=== PATIENT | female | born 1970 | race Caucasian/White ===

== ENCOUNTER 2018-05-28 16:04 | Emergency (ER) | payer OTHER ==
[~2018-05-28 16:04] MED LIST: EPINEPHrine 0.1 MG/ML SYG; ETOMIDATE 20 MG INJ; NA BICARBONATE 8.4% 50 ML SYG; SUCCINYLCHOLINE CHLORIDE 100 MG/5 ML SYG IV
[2018-05-28] MEDS: morphine 4 MG/ML VIAL IV (16:17)
[2018-05-28] MEDS: SOD CHLORIDE 0.9% 1,000 ML IV ×2 (16:17→19:02)
[2018-05-28] MEDS: ONDANSETRON 4 MG INJ IV (16:17)
[2018-05-28 16:20] LABS: ADD MAN DIFF? NO
[2018-05-28 16:25] LABS: WHITE BLOOD COUNT 15.6 10^3/ul (4.8-10.8)
[2018-05-28 16:25] LABS: BASOPHIL # 0.1 10^3/ul (0.0-0.1); BASOPHILS % 0.4 % (0.0-2.0); EOSINOPHILS # 0.1 10^3/ul (0.0-0.5); EOSINOPHILS % 0.5 % (0.0-7.0); HEMATOCRIT 34.9 % (37.0-47.0); HEMOGLOBIN 11.1 g/dl (12.0-16.0); LYMPHOCYTES # 4.2 10^3/ul (0.8-2.9); LYMPHOCYTES % 26.9 % (15.0-51.0); MEAN CORPUSCULAR HEMOGLOBIN 24.9 pg (29.0-33.0); MEAN CORPUSCULAR HGB CONC 31.8 g/dl (32.0-37.0); MEAN CORPUSCULAR VOLUME 78.4 fl (82.0-101.0); MEAN PLATELET VOLUME 9.4 fl (7.4-10.4); MONOCYTES % 6.7 % (0.0-11.0); NEUTROPHIL # 10.1 10^3/ul (1.6-7.5); NEUTROPHILS % 65.1 % (39.0-77.0); PLATELET COUNT 221 10^3/UL (140-415); RED BLOOD COUNT 4.45 10^6/ul (4.20-5.40); RED CELL DISTRIBUTION WIDTH 17.1 % (11.5-14.5)
[2018-05-28] MEDS: LORAZEPAM 2 MG INJ IV (16:38)
[2018-05-28 16:41] LABS: ALANINE AMINOTRANSFERASE 25 IU/L (13-69); ALBUMIN 4.3 g/dl (3.3-4.9); ALBUMIN/GLOBULIN RATIO 1.26; ALKALINE PHOSPHATASE 131 IU/L (42-121); ANION GAP 17 (8-16); ASPARTATE AMINO TRANSFERASE 20 IU/L (15-46); BILIRUBIN,INDIRECT 0.3 mg/dl (0-1.1); BILIRUBIN,TOTAL 0.3 mg/dl (0.2-1.3); BLOOD UREA NITROGEN 15 mg/dl (7-20); CALCIUM 9.1 mg/dl (8.4-10.2); CARBON DIOXIDE 19 mmol/L (21-31); CHLORIDE 112 mmol/L (97-110); CREATININE 1.03 mg/dl (0.44-1.00); GLUCOSE 121 mg/dl (70-220); LIPASE 82 U/L (23-300); POTASSIUM 3.6 mmol/L (3.5-5.1); SODIUM 144 mmol/L (135-144); TOTAL PROTEIN 7.7 g/dl (6.1-8.1)
[2018-05-28 16:44] LABS: INR 1.15; PROTIME 14.9 Sec (11.9-14.9); PT RATIO 1.2
[2018-05-28 16:45] LABS: PARTIAL THROMBOPLASTIN TIME 27.7 Sec (25.0-35.0)
[2018-05-28] MEDS: HYDROmorphONE 2 MG/ML SYG IV (16:45)
[2018-05-28 16:52] LABS: TROPONIN-I < 0.010 ng/ml (0.000-0.120)
[2018-05-28 16:55] LABS: ADD UMIC NO; UR ASCORBIC ACID NEGATIVE (NEGATIVE); UR BILIRUBIN (Dip) NEGATIVE (NEGATIVE); UR BLOOD (Dip) NEGATIVE (NEGATIVE); UR CLARITY CLEAR (CLEAR); UR COLOR YELLOW (YELLOW); UR GLUCOSE (Dip) NEGATIVE (NEGATIVE); UR KETONES (Dip) NEGATIVE (NEGATIVE); UR LEUKOCYTE ESTERASE (Dip) NEGATIVE Leu/ul (NEGATIVE); UR NITRITE (Dip) NEGATIVE (NEGATIVE); UR SPECIFIC GRAVITY (Dip) 1.015 (1.003-1.030); UR TOTAL PROTEIN (Dip) NEGATIVE (NEGATIVE); UR UROBILINOGEN (Dip) NEGATIVE (NEGATIVE)
[2018-05-28] MEDS ORDERED: NALOXONE (0.4 MG/ML) INJ (17:19)
[2018-05-28] MEDS ORDERED: NALOXONE 2 MG SYG (17:21)
[2018-05-28] MEDS: ETOMIDATE 20 MG INJ IV (17:32)
[2018-05-28] MEDS: SUCCINYLCHOLINE CHLORIDE 100 MG/5 ML SYG IV (17:32)
[2018-05-28] MEDS ORDERED: PROPOFOL 100 ML (17:33)
[2018-05-28 17:36] LABS: AMPHETAMINE/METHAMPHETAMINE Negative (NEGATIVE); BARBITURATES Negative (NEGATIVE); BENZODIAZEPINES Negative (NEGATIVE); CANNABINOIDS Negative (NEGATIVE); COCAINE Negative (NEGATIVE); OPIATES Positive (NEGATIVE)
[2018-05-28 18:29] LABS: ETHANOL < 10.0 mg/dl; SALICYLATE < 1.0 mg/dl (5.0-30.0)
[2018-05-28 18:29] LABS: ACETAMINOPHEN < 10.0 ug/ml (10.0-30.0)
[2018-05-28] MEDS: IOHEXOL 300MG/ML 150 ML BTL (18:33)
[2018-05-28] MEDS: SOD CHLORIDE 0.9% 100 ML (18:33)
[2018-05-28 18:49] LABS: AADO2 Arterial 300.4 mmHg (7.0-24.0); Allen Test ACCEPTAB; Arterial Base Excess -14.7 mmol/L (-3.0-3); Arterial Blood Gas Oxygen Sat 99.4 mmHG (95.0-98.0); Arterial COHb 0.3 % (0.0-3.0); Arterial Fraction of Oxyhgb 98.8 % (93.0-99.0); Arterial HCO3 10.4 mmol/L (22.0-26.0); Arterial MetHb 0.3 % (0.0-1.5); Arterial Total Hemglobin 10.1 g/dl (12.0-18.0); Arterial pCO2 22.9 mmhg (35-45); Blood Gas Low PEEP Setting 0 cmH2O; MODE VENT - AC; Site Right Radial
[2018-05-28] MEDS: ESMOLOL 250 ML IV (18:55)
[2018-05-28] MEDS ORDERED: ESMOLOL 250 ML IV ×3 (19:30)
[2018-05-28] MEDS ORDERED: PROPOFOL 100 ML IV (19:30)
[2018-05-28] MEDS ORDERED: HEPARIN (10000 UNITS/ML) 10,000 UNIT, MILRINONE LACTATE 10 MG in SOD CHLORIDE 0.9% 1,00... SC (20:00)
[2018-05-28] MEDS ORDERED: INSULIN HUMAN REGULAR 100 UNIT in SOD CHLORIDE 0.9% 99 ML IVPB (20:00)
[2018-05-28] MEDS ORDERED: EPINEPHrine 4 MG in DEXTROSE 5% 246 ML IV (20:00)
[2018-05-28] MEDS ORDERED: MILRINONE LACTATE 2 MG in SOD CHLORIDE 0.9% 50 ML IV (20:00)
[2018-05-28] MEDS ORDERED: PHENYLephrine 20MG IN 250 ML 250 ML IV (20:00)
[2018-05-28] MEDS ORDERED: ASPIRIN 600 MG SUPP PR (20:00)
[2018-05-28] MEDS ORDERED: NORepinephrine 8MG/250 ML (PMX 250 ML IV (20:00)
[2018-05-28] MEDS ORDERED: ATROPINE 0.4 MG INJ IV (20:00)
== END 2018-05-29 00:50 | disposition expired ==
LOC: E/R 16:04
DX: I71.00 Dissection of unspecified site of aorta (principal); D72.829 Elevated white blood cell count, unspecified; D64.9 Anemia, unspecified; E87.2 Acidosis; I10 Essential (primary) hypertension; R41.82 Altered mental status, unspecified
CPT/HCPCS: 31500; 36415; 36600; 70450; 71045; 71275; 75635; 76705; 80053; 80307; 81003; 81025; 82803; 83690; 84484; 85025; 85610; 85730; 92950; 93005; 94002; 96374; 96375; 99291-25